=== PATIENT | male | born 1995 | race Two or more races ===

== ENCOUNTER 2020-08-12 07:18 | Emergency (ER) | payer MEDICAID ==
[~2020-08-12] VITALS: Ht 165.1 cm; Wt 68.0 kg
[2020-08-12 07:42] VITALS: BP 116/81
== END 2020-08-12 08:22 | disposition home or self-care (01) ==
LOC: ER 07:18
DX: S01.512A Laceration without foreign body of oral cavity, initial encounter (principal); Z88.0 Allergy status to penicillin; Z88.8 Allergy status to other drugs, medicaments and biological substances; X58.XXXA Exposure to other specified factors, initial encounter; Y93.71 Activity, boxing; Y92.89 Other specified places as the place of occurrence of the external cause; Y99.8 Other external cause status